=== PATIENT | male | born 1990 | race Caucasian/White ===

== ENCOUNTER 2020-02-04 21:27 | Emergency (ER) | payer SELFPAY ==
--- NOTE | ~2020-02-04 | XR_ITS ---
EXAMINATION: XR chest 2V DATE: 02/04/2020 21:42 INDICATION: Chest pain and nausea, overdose TECHNIQUE: AP and lateral views of the chest are obtained. COMPARISON: None available FINDINGS: The lungs are free of acute opacities. There is no pleural effusion or pneumothorax. The ca rdiomediastinal silhouette is normal. The visualized bones and soft tissues are unremarkable. IMPRESSION: 1. No acute cardiopulmonary abnormality. Reviewed, dictated and finalized at location A.
--- NOTE | 2020-02-04 21:23 | ED.OVERDOSE ---
HPI - Overdose General Chief Complaint: Overdose Stated Complaint: od Time Seen by Provider: 02/04/20 21:23 Source: patient, EMS and RN notes reviewed Mode of arrival: EMS Limitations: no limitations History of Present Illness HPI Narrative: A 29 y/o male presents to the ED via EMS after an accidental overdose this evening. EMS states that the pt was found unresponsive at home by his girlfriend. She told them that the pt shot himself up with Fentanyl around 2030 this evening. She reports that the pt stopped breathing, so she did CPR on him for roughly 3-4 minutes until he began to breath on his own again. EMS reports that PD gave the pt 4 mg of intranasal Narcan that was before they arrived, which didn't make the pt more responsive. They state that they gave the pt IV Narcan in route and shortly after the pt became A&Ox3. The pt notes that he hasn't used Fentanyl in a couple of months and that he wanted to get high and accidentally overdosed. He denies any SI, CP, SOB, ABD pain, back pain, or any medical complaints besides just being cold . complaint: accidental overdose Onset (ago): hour(s) (1) Time: 20:30 Timing confirmed by: other (girlfriend) Substance Ingested Fentanyl: Time of Ingestion: 20:30 How Overdose Was Discovered: called family/friend (girlfriend) Context: Accidental Overdose: wanted to get high Associated symptoms: other (feeling cold) Treatments Prior to Arrival: narcan Related Data Allergies Allergy/AdvReac Type Severity Reaction Status Date / Time No Known Allergies Allergy Verified 02/04/20 22:09 Review of Systems Review of Systems: Narrative: CONSTITUTIONAL: Reports feeling cold. CARDIOVASCULAR: Denies chest pain. RESPIRATORY: Denies dyspnea. GASTROINTESTINAL: Denies abdominal pain. MUSCULOSKELETAL: Denies back pain. NEUROLOGIC: Denies headache, numbness, or weakness. PSYCHIATRIC: Denies SI. All systems reviewed & are unremarkable except as noted in HPI and below PMFSH Past Medical History Medical History (Updated 02/05/20 @ 00:31 by Nahomy Bronson MD) Medical history unknown Surgical History Surgical History (Updated 02/04/20 @ 21:28 by Prasanna Dalton) Surgical history unknown Social History Social History (Updated 02/04/20 @ 21:31 by Prasanna Dalton) Smoking status: Unknown if ever smoked Substance use: current Substance use type: opiates Other substance usage details: Fentanyl Gender identity (if verbalized by the patient): Male Exam Narrative: Exam Narrative: GENERAL: Awake, alert, tearful HEAD: Normocephalic, atraumatic. EYES: PERRLA and EOMI. ENT: Nares clear, no rhinorrhea or epistaxis. Mucous membranes moist. NECK: Supple. CHEST: Clear to auscultation. No respiratory distress. No chest wall tenderness. HEART:Tachycardic rate and regular rhythm. No murmur heard. Normal peripheral pulses. ABDOMEN: Soft, nontender, nondistended, normal active bowel sounds. EXTREMITIES: Normal range of motion. No edema. SKIN: Warm, dry, no rash. NEURO: No focal deficits. Alert and oriented X3. PSYCH: Denies SI or HI Course Course Emergency Course: Patient presented to the emergency department for evaluation after an accidental fentanyl overdose. Per patient, he had not used in 2 months, and then use this evening. There is no intent to harm himself or end his life. Patient is alert and oriented to person, place and time at the time of assessment. He is mildly tachycardic, vital signs are stable. Patient was monitored for 3 hours and had no need for Narcan re-dosing. His vital signs normalized after fluids. His chest x-ray showed no evidence of aspiration. Patient was reassessed numerous times, continues to deny homicidal or suicidal ideation with reassessment. At this point, patient will be given resources for overdose help in the community, I do not feel that he needs to be evaluated by crisis consultation as he has no homicidal or suicidal thoughts. Patient was then discharg
[2020-02-04 21:35] VITALS: BP 105/53; PULSE 116; RESP 18; TEMP 36.6; O2SAT 100
[2020-02-04 21:43] VITALS: PULSE 116; RESP 16
[2020-02-04] MEDS: SODIUM CHLORIDE 0.9% IV 1,000 ML 999 ML IV CONT (22:13)
[2020-02-04 22:43] VITALS: BP 123/70; PULSE 106; RESP 16; O2SAT 97
[2020-02-04 23:35] VITALS: BP 112/66; PULSE 98; RESP 16; O2SAT 99
[2020-02-05 00:15] VITALS: BP 110/68; PULSE 86; RESP 16; TEMP 36.8; O2SAT 98
== END 2020-02-05 01:04 | disposition home or self-care (01) ==
PROVIDERS: Emergency Provider Emergency Medicine
DX: T40.4X1A Poisoning by other synthetic narcotics, accidental (unintentional), initial encounter (principal)
CPT/HCPCS: 71046; 99283; J7030